=== PATIENT | female | born 1985 | race Two or more races ===

== ENCOUNTER → 2024-04-19 | Outpatient (CLI) | payer BC | END | disposition home or self-care (01) | LOC: LAB 14:21 | PROVIDERS: ATTEND Obstetrics & Gynecology | DX: Z34.00 Encounter for supervision of normal first pregnancy, unspecified trimester (principal) | CPT/HCPCS: 36415; 84144; 84702 ==

== ENCOUNTER → 2024-05-11 | Outpatient (CLI) | payer BC ==
[2024-05-11 12:23] LABS: Basophils # (auto) 0.1 10 ^3/uL (0-0.2); Basophils % (auto) 0.6 % (0.0-2.0); Eosinophils # (auto) 0.1 10 ^3/uL (0-0.8); Eosinophils % (auto) 0.9 % (0.0-7.0); Hematocrit 39.6 % (36.0-46.0); Hemoglobin 13.4 g/dL (12.2-16.2); Lymphocytes # (auto) 2.1 10 ^3/uL (0.4-5.4); Lymphocytes % (auto) 15.9 % (10.0-50.0); Mean Corpuscular Hemoglobin 27.6 pg (28.0-32.0); Mean Corpuscular Hgb Conc. 33.7 g/dL (32.0-36.0); Monocytes # (auto) 0.7 10 ^3/uL (0-1.3); Monocytes % (auto) 5.8 % (0.0-12.0); Neutrophils % (auto) 76.8 % (37.0-80.0); Nucleated Red Blood Cells % 0.1 %; Platelet Count (auto) 283 10^3/uL (140-450); Red Blood Cells 4.84 10^6/uL (4.0-5.20); Red Cell Distribution Width 14.6 % (11.8-14.3)
[2024-05-11 13:00] LABS: Amphetamine Screen, Urine Neg (NEGATIVE); Barbiturate Scree,Urine Neg (NEGATIVE); Benzodiazephine Screen, Urine Neg (NEGATIVE); Cocaine Screen, Urine Neg (NEGATIVE); Opiate Scree,Urine Neg (NEGATIVE); Phencyclidine Screen, Urine Neg (NEGATIVE)
[2024-05-11 13:01] LABS: Cannabinoid Screen, Urine Neg (NEGATIVE)
[2024-05-12 06:06] LABS: RPR Non Reactive (Non Reactive)
[2024-05-12 18:06] LABS: Chlamydia Trachomatis, NAA Negative (Negative); Neisseria gonorrhoeae, NAA Negative (Negative)
== END | disposition home or self-care (01) ==
LOC: LAB 11:42
PROVIDERS: ATTEND Obstetrics & Gynecology
DX: O23.40 Unspecified infection of urinary tract in pregnancy, unspecified trimester (principal); Z31.430 Encounter of female for testing for genetic disease carrier status for procreative management; N39.0 Urinary tract infection, site not specified; Z20.09 Contact with and (suspected) exposure to other intestinal infectious diseases
CPT/HCPCS: 36415; 80307; 83036; 84144; 84702; 85025; 86592; 86703; 86762; 86850; 86900; 86901; 87086; 87340

== ENCOUNTER 2024-06-04 16:29 | Emergency (ER) | payer BC ==
[~2024-06-04] VITALS: Ht 162.6 cm; Wt 100.0 kg
[2024-06-04] MEDS: ACETAMINOPHEN 500 MG TAB or CAP PO ONE (17:00)
--- NOTE | 2024-06-04 17:30 | DVH ---
EXAM: US OB ULTRASOUND COMP LESS 14WKS CLINICAL HISTORY: cramping, brown vag d/c COMPARISON: None TECHNIQUE: Grayscale, color-flow Doppler, and spectral Doppler ultrasound of the pelvis is performed by transabdominal technique. Findings: Single live intrauterine with gestational sac, yolk sac and embryo visualized. heart rate of 178 bpm. Estimated gestational age 12 weeks 0 days based on parameters including crown- rump length of 6.0 cm. Uterus measures 15.2 x 10.4 x 10.5 cm in size. Cervical os appears closed. No evidence of subchorionic hemorrhage. Bilateral ovaries not visualized. Mild free fluid within the cul-de-sac. Impression: 1. Single live intrauterine with heart rate of 178 bpm. Estimated gestational age 12 weeks 0 days with estimated date of confinement 12/17/2024. 2. No evidence of subchorionic hemorrhage. Cervical os appears closed. 3. Bilateral ovaries not visualized. 4. Mild free fluid in the cul-de-sac, nonspecific.
[2024-06-04] MEDS: SODIUM CHLORIDE 0.9% 1,000 ML IV ONE (17:33)
--- NOTE | 2024-06-04 17:57 | ED.PDOC ---
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 Pt states the abd pain is located on LLQ and is described as contractions, stating her abdominal wall becomes tight and firm on the left side. Additional symptoms include nausea and vomiting. Pt is currently 12 weeks . 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 Chief Complaint: Time Seen by MD: 17:45 Reviewed Notes: Nurses Notes, Medications, Allergies Allergies: Coded Allergies: Ibuprofen (Verified Allergy, Unknown, 06/04/24) Information Source: Patient Mode of Arrival: Ambulatory Timing: Hours Prehospital treatment: None Severity: Mild Vaginal Discharge: Other (light spotting) Vaginal Lesions: None Vaginal Mass: None Sexual Activity: Last Consensual [place]: Unknown Control: None History of: Current Associated Signs and Symptoms: Vaginal Discharge, Abdominal Pain (contractions) Past Medical History PAST MEDICAL HISTORY: DM (gestational) Surgical History: Denies all surgeries 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: Other (Gestational diabetes with prior ) 4 Para 3 Family History Family History: Unknown Social History Smoker: Non-Smoker Alcohol: Denies ETOH Use Drugs: Denies Drug Use Lives In: Home Constitutional: denies: chills, diaphoresis, fatigue, fever, malaise, sweats, weakness, others EENTM: denies: blurred vision, double vision, ear bleeding, ear discharge, ear drainage, ear pain, ear ringing, eye pain, eye redness, hearing loss, mouth pa in, mouth swelling, nasal discharge, nose bleeding, nose congestion, nose pain, photophobia, tearing, throat pain, throat swelling, voice changes, others Respiratory: denies: cough, hemoptysis, orthopnea, SOB at rest, shortness of breath, SOB with excertion, stridor, wheezing, others Cardiovascular: denies: chest pain, dizzy spells, diaphoresis, Dyspnea on exertion, edema, irregular heart beat, left arm pain, lightheadedness, palpitations, PND, syncope, others Gastrointestinal: denies: abdomen distended, abdominal pain, blood streaked bowels, constipated, diarrhea, dysphagia, difficulty swallowing, hematemesis, melena, nausea, poor appetite, poor fluid intake, rectal bleeding, rectal pain, vomiting, others Genitourinary: reports: pain (contractions), , others (light spotting); denies: abnormal vagina bleeding, burning, dyspareunia, dysuria, flank pain, frequency, hematuria, incontinence, vagina discharge, urgency Neurological: denies: dizziness, fainting, headache, left sided numbness, left sided weakness, numbness, paresthesia, pre-existing deficit, right sided numbness, right sided weakness, seizure, speech problems, tingling, tremors, weakness, others Musculoskeletal: denies: back pain, gout, joint pain, joint swelling, muscle pain, muscle stiffness, neck pain, others Integumetry: denies: bruises, change in color, change in hair/nails, dryness, laceration, lesions, lumps, rash, wounds, others Allergic/Immunocompromised: denies: Difficulty Healing, Frequent Infections, Hives, Itching, others Hematologic/Lymphatic: denies: anemia, blood clots, easy bleeding, easy bruising, swollen glands, others Endocrine: denies: excessive hunger, excessive sweating, excessive thirst, excessive urination, flushing, intolerance to cold, intolerance to heat, unexplained weight gain, unexplained weight loss, others Psychiatric: denies: anxiety, bipolar disorder, depression, hopeless, panic disorder, schizophrenia, sleepless, suicidal, others All Other Systems: Reviewed and Negative Physical Exam General Appearance: No Apparent Distress HEENT: Other (Pupils symmetric, moist mucous membranes) Neck: Full Range of Motion, Normal Inspection Respiratory: Lungs Clear, No Accessory Muscle Use, No Respiratory Distress, Normal Breath Sounds Cardiovascular: No Edema, No JVD, Regular Rate/Rhythm Breast Exam: Deferred Gastrointestinal: Non Tender, Soft Genitalia: Deferred Pelvic: Deferred Rectal: Deferred Extremities: Normal inspection, Normal range of motion, Non-tender, No pedal edema Neurologic: Alert (Oriented x4), Normal Affect, Normal Mood, Other (Ambulatory. No gross focal deficit.) Cerebellar Function: NOT DONE Reflexes: NOT DONE Skin: Dry, Normal Color, Warm Lymphatic: NOT DONE Was a procedure done? Was a procedure done?: No Differential Diagnosis (RESIDENTIAL INSTRUCTOR) Vaginal Bleeding: - Threatened, Abruptio Placentae, Placenta Previa, UTI, Other (Rowdy Lopez contractions, labor, electrolyte imbalance, dehydration, renal insufficiency/failure,) X-Ray, Labs, Meds, VS Vital Signs Date Time Temp Pulse Resp B/P (MAP) Pulse Ox O2 Delivery O2 Flow Rate FiO2 06/04/24 19:29 87 19 99 Room Air* 0 21 06/04/24 19:29 98.3 87 19 121/63 (82) 99 98.3 06/04/24 18:30 98.0 80 12 113/57 (75) 100 98.0 06/04/24 18:30 68 18 99 Room Air* 0 21 06/04/24 16:36 97.6 68 18 116/59 (78) 99 Lab Test 06/04/24 18:44 06/04/24 17:00 Range/Units White Blood Count 12.0 H 4.4-10.8 10^3/uL Red Blood Count 4.82 4.0-5.20 10^6/uL Hemoglobin 13.3 12.2-16.2 g/dL Hematocrit 39.8 36.0-46.0 % Mean Corpuscular Volume 82.5 80.0-100.0 fL Mean Corpuscular Hemoglobin 27.6 L 28.0-32.0 pg Mean Corpuscular Hemoglobin Concent 33.4 32.0-36.0 g/dL Red Cell Distribution Width 15.1 H 11.8-14.3 % Platelet Count 283 140-450 10^3/uL Mean Platelet Volume 8.6 6.9-10.8 fL Neutrophils (%) (Auto) 73.6 37.0-80.0 % Lymphocytes (%) (Auto) 19.2 10.0-50.0 % Monocytes (%) (Auto) 5.4 0.0-12.0 % Eosinophils (%) (Auto) 1.1 0.0-7.0 % Basophils (%) (Auto) 0.7 0.0-2.0 % Neutrophils # (Auto) 8.8 H 1.6-8.6 10 ^3/uL Lymphocytes # (Auto) 2.3 0.4-5.4 10 ^3/uL Monocytes # (Auto) 0.6 0-1.3 10 ^3/uL Eosinophils # (Auto) 0.1 0-0.8 10 ^3/uL Basophils # (Auto) 0.1 0-0.2 10 ^3/uL Nucleated Red Blood Cells 0.0 % Sodium Level 137 136-145 mmol/L Potassium Level 3.7 3.5-5.1 mmol/L Chloride Level 104 98-107 mmol/L Carbon Dioxide Level 22 20-31 mmol/L Anion Gap 11 5-15 Blood Urea Nitrogen 6 L 9-23 mg/dL Creatinine 0.60 0.550-1.02 mg/dL Glomerular Filtration Rate Calc 118 >90 mL/min BUN/Creatinine Ratio 10.0 10.0-20.0 Serum Glucose 87 74-106 mg/dL Calcium Level 9.6 8.7-10.4 mg/dL Beta HCG, Quantitative 85042.4 H 1.5-4.2 mIU/mL Urine Color Colorless Yellow Urine Clarity Turbid H Clear Urine pH 6.0 5.0-9.0 Urine Specific [place] 1.004 1.001-1.035 Urine Protein Negative Negative Urine Ketones Negative Negative Urine Blood 2+ H Negative /uL Urine Nitrite Negative Negative Urine Bilirubin Negative Negative Urine Urobilinogen Normal Negative mg/dL Urine Leukocyte Esterase 3+ Negative /uL Urine RBC 7 0 - 4 /hpf Urine WBC Clumps Present None Seen /hpf Urine Microscopic WBC 233 H 0-5 /HPF Urine Squamous Epithelial Cells Few <5 /hpf Urine Bacteria Few H None Seen /hpf Urine Glucose Normal Normal mg/dL Current Medications Medications (Trade) Dose Ordered Sig/Genesis Route Start Time Stop Time Status Last Admin Sodium Chloride 1,000 ml @ 1,000 mls/hr Q1H ONCE IV 06/04/24 17:00 06/04/24 17:59 DC 06/04/24 17:33 ORDERING PHYSICIAN: ANDREIA MASTERS MD PROCEDURE(s): OB4US - OB ULTRASOUND COMP LESS 14WKS REASON: cramping, brown vag d/c ORDER NUMBER(s): [id number], ACCESSION NUMBER(s): [id number] EXAM: US OB ULTRASOUND COMP LESS 14WKS CLINICAL HISTORY: cramping, brown vag d/c COMPARISON: None TECHNIQUE: Grayscale, color-flow Doppler, and spectral Doppler ultrasound of the pelvis is performed by transabdominal technique. Findings: Single live intrauterine with gestational sac, yolk sac and embryo visualized. heart rate of 178 bpm. Estimated gestational age 12 weeks 0 days based on parameters including crown-rump length of 6.0 cm. Uterus measures 15.2 x 10.4 x 10.5 cm in size. Cervical os appears closed. No evidence of subchorionic hemorrhage. Bilateral ovaries not visualized. Mild free fluid within the cul-de-sac. Impression: 1. Single live intrauterine with heart rate of 178 bpm. Estimated gestational age 12 weeks 0 days with estimated date of confinement 12/17/2024. 2. No evidence of subchorionic hemorrhage. Cervical os appears closed. 3. Bilateral ovaries not visualized. 4. Mild free fluid in the cul-de-sac, nonspecific. X-Ray, Labs, Meds, VS Comment 38-year-old female with a history of current , gestational diabetes with previous , G4, P 3 complaining of contractions, nausea and vomiting Vitals remarkable for BP 116/59 Exam unremarkable Rhythm strip independently interpreted by me: Sinus rhythm, rate 68, no ectopy. Ob ultrasound: Impression: 1. Single live intrauterine with heart rate of 178 bpm. Estimated gestational age 12 weeks 0 days with estimated date of confinement 12/17/2024. 2. No evidence of subchorionic hemorrhage. Cervical os appears closed. 3. Bilateral ovaries not visualized. 4. Mild free fluid in the cul-de-sac, nonspecific. CBC remarkable for WBC 12, metabolic panel unremarkable, serum quantitative hCG 96849.4, UA abnormal consistent with UTI Patient treated with the following in the ED: 1 L 0.9 normal saline IV bolus, Rocephin 1 g IV On re-evaluation, patient denies contractions, abdominal exam benign, no nausea or vomiting. Hospitalization was considered, however patient had rapid improvement of symptoms with treatment in the ED, and I no longer feel hospitalization is necessary. 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 I will prescribe oral antibiotics. Rx tita Hsieh Reglan Time of 1ST Reevaluation: 18:15 Reevaluation 1ST: Unchanged Patient Education/Counseling: Diagnosis, Treatment Family Education/Counseling: No Family Present Departure 1 Departure Time of Disposition: 21:54 Impression: Primary Impression: Morales Lopez contractions Additional Impression: UTI (urinary tract infection) Qualified Codes: N39.0 - Urinary tract infection, site not specified Disposition: HOME / SELF CARE / HOMELESS Condition: Stable Additional Instructions: Your blood tests were unremarkable. Your urine test showed you have a urinary tract infection. Your ultrasound is unremarkable. I have provided the report below. I have prescribed antibiotics and medication for nausea. Follow-up with your OBGYN in 1-2 days. Return to ER for persistent or worsening symptoms. e-Prescriptions Metoclopramide Hcl (Reglan) 10 Mg Tab 10 MG PO Q6HP PRN, #20 TAB prn nausea/vomiting Prov: ANDREIA MASTERS MD 06/04/24 Doxylamine-Pyridoxine (DICLEGIS) 1 Tab Tab 2 TAB OR HS PRN, #60 TAB prn nausea/vomiting Prov: ANDREIA MASTERS MD 06/04/24 Cephalexin Monohydrate (Cephalexin) 500 Mg Cap 1 CAP PO QID for 10 Days, #40 CAP Prov: ANDREIA MASTERS MD 06/04/24 Discharged With: Spouse Critical Care Note Critical Care Time?: No Stability Stability form required: No Heart Score Heart Score: Heart Score Response (Comments) Value History N/A 0 EKG N/A 0 Age N/A 0 Risk Factors N/A 0 Troponin N/A 0 Total 0 I personally scribed for ANDREIA MASTERS MD ([email or web address]) on 06/04/24 at 17:57. Electronically submitted by Lynn Hatch ([employer]). I personally scribed for ANDREIA MASTERS MD ([email or web address]) on 06/04/24 at 19:20. Electronically submitted by Lynn Hatch ([employer]). ANDREIA MASTERS MD Jun 04, 2024 17:57
[2024-06-04 18:30] VITALS: PULSE 68; RESP 18; O2SAT 99
[2024-06-04 19:00] LABS: Urine Bacteria FEW /hpf (None Seen); Urine Blood 2+ /uL (Negative); Urine Clarity Turbid (Clear); Urine Color Colorless (Yellow); Urine Protein, UAD Negative (Negative); Urine Specific Gravity 1.004 (1.001-1.035); Urine Squamous Epithelial Cell FEW /hpf (<5); Urine Urobilinogen Normal (Negative); Urine WBC 233 /HPF (0-5); Urine WBC Clumps PRESENT /hpf (None Seen)
[2024-06-04 19:14] LABS: Basophils # (auto) 0.1 10 ^3/uL (0-0.2); Basophils % (auto) 0.7 % (0.0-2.0); Eosinophils # (auto) 0.1 10 ^3/uL (0-0.8); Eosinophils % (auto) 1.1 % (0.0-7.0); Hematocrit 39.8 % (36.0-46.0); Hemoglobin 13.3 g/dL (12.2-16.2); Lymphocytes # (auto) 2.3 10 ^3/uL (0.4-5.4); Lymphocytes % (auto) 19.2 % (10.0-50.0); Mean Corpuscular Hemoglobin 27.6 pg (28.0-32.0); Mean Corpuscular Hgb Conc. 33.4 g/dL (32.0-36.0); Mean Corpuscular Volume 82.5 fL (80.0-100.0); Monocytes # (auto) 0.6 10 ^3/uL (0-1.3); Monocytes % (auto) 5.4 % (0.0-12.0); Neutrophils # (auto) 8.8 10 ^3/uL (1.6-8.6); Neutrophils % (auto) 73.6 % (37.0-80.0); Platelet Count (auto) 283 10^3/uL (140-450); Red Blood Cells 4.82 10^6/uL (4.0-5.20); Red Cell Distribution Width 15.1 % (11.8-14.3)
[2024-06-04 19:22] LABS: Chloride 104 mmol/L (98-107); Potassium 3.7 mmol/L (3.5-5.1); Sodium 137 mmol/L (136-145)
[2024-06-04 19:23] LABS: Anion Gap 11 (5-15); Calcium 9.6 mg/dL (8.7-10.4); Carbon Dioxide 22 mmol/L (20-31)
[2024-06-04 19:28] LABS: Blood Urea Nitrogen 6 mg/dL (9-23); Glucose 87 mg/dL (74-106)
[2024-06-04 19:29] VITALS: PULSE 87; RESP 19; TEMP 98.3; O2SAT 99
[2024-06-04] MEDS ORDERED: CEPH500C PO (21:57)
[2024-06-04] MEDS ORDERED: DOXY10TA OR (21:57)
[2024-06-04] MEDS ORDERED: METO-281 PO (21:57)
[2024-06-04 22:00] VITALS: BP 118/75; PULSE 88; RESP 20; O2SAT 97
[2024-06-04] MEDS ORDERED: cefTRIAXone 1GM/50ML D5W 50 ML IV ONE (22:00)
== END 2024-06-04 22:11 | disposition home or self-care (01) ==
LOC: ER 16:29
DX: O23.41 Unspecified infection of urinary tract in pregnancy, first trimester (principal); R10.2 Pelvic and perineal pain; O47.1 False labor at or after 37 completed weeks of gestation; O24.111 Pre-existing type 2 diabetes mellitus, in pregnancy, first trimester; O36.8310 Maternal care for abnormalities of the fetal heart rate or rhythm, first trimester, not applicable or unspecified; N39.0 Urinary tract infection, site not specified; Z3A.12 12 weeks gestation of pregnancy; Z88.6 Allergy status to analgesic agent
CPT/HCPCS: 36415; 76801; 80048; 81001; 84702; 85025; 96360; 99284; J7030

== ENCOUNTER 2024-10-21 06:30 | Observation (INO) | payer BC ==
[~2024-10-21] VITALS: Ht 162.6 cm; Wt 107.5 kg
[~2024-10-21 06:30] MED LIST: CEPH500C PO; DOXY10TA OR; METO-281 PO
--- NOTE | 2024-10-21 15:51 | DVH ---
BIOPHYSICAL PROFILE HISTORY: GDMA2 TECHNIQUE: Multiple transabdominal real-time grayscale sonographic images through the gravid uterus of the fetus with duplex Doppler color flow and M-mode spectral analysis FINDINGS: BIOPHYSICAL PROFILE: breathing score: 2 movement score: 2 tone score: 2 Quantitative USHA score: 2 (USHA: 19.5 Cm.) Total score: 8/8 The cervix not measured Single live fetus in cephalic presentation. heart rate 144 beats per minute. Fundal Grade 2 placenta without previa or abruption Single live fetus at 32 weeks 1 day Biophysical profile score 8/8 corresponding to an DRE of 12/15/2024 IMPRESSION: 1. Biophysical profile score: 8/8
[2024-10-21] MEDS ORDERED: METF-370 PO (16:10)
[2024-10-21] MEDS ORDERED: LACTATED RINGER'S 1,000 ML IV SCH (16:15)
[2024-10-21] MEDS ORDERED: TERBUTALINE SULFATE 1 MG/ML 1ML VIAL SC ONE (16:17)
[2024-10-21] MEDS: TERBUTALINE SULFATE 1 MG/ML 1ML VIAL SC SCH (16:38)
[2024-10-21] MEDS: LACTATED RINGER'S 1,000 ML IV ONE (16:39)
--- NOTE | 2024-10-22 08:01 | DVHDS2 ---
Physician Discharge Progress N Final Diagnosis: IUP @ 32.1wks gdm Operations or Procedures: Operations or Procedures nst reactive reviwed,sono Condition on Discharge: Good Disposition: Home Discharge Instructions: Diet: Consistent carbohydrate Activity: Light activity Medications: na Follow Up Care: Specialist: 3d Discharge Statement: "Patient was advised to return to the ER or call 911 if any headaches, dizziness, shortness of breath, chest pain, abdominal pain, bleeding, fevers, or worsening of medical condition. Patient was counseled about treatment plan, medications, possible side effects, patientverbalized understanding. All questions were answered to the best of my ability. This discharge took greater then 30 minutes in planning, reviewing d ocumentation, counseling the patient, and discussing with other team members." Visit Coding OBGYN Date of Service: Oct 21, 2024 Billing Provider: NEVAEH MARTINI DO CHOPPER GUN OPERATOR Common Visit Codes: 49020-RSAEGUM OBS CARE (HIGH) CHOPPER GUN OPERATOR Procedure Codes: 48337-86- NON-STRESS TEST NEVAEH MARTINI DO Oct 22, 2024 08:01
== END 2024-10-21 17:51 | disposition home or self-care (01) ==
LOC: LDRP 15:02
PROVIDERS: ADMIT Obstetrics & Gynecology; ATTEND Obstetrics & Gynecology
DX: O24.419 Gestational diabetes mellitus in pregnancy, unspecified control (principal); Z3A.32 32 weeks gestation of pregnancy; Z79.899 Other long term (current) drug therapy; Z98.890 Other specified postprocedural states
CPT/HCPCS: 76818; 81002; 82962; 94760; 96360; 96361; 96372; G0378; J3105; 59025; 76819

== ENCOUNTER 2024-10-25 07:39 | Observation (INO) | payer BC ==
[~2024-10-25 07:39] MED LIST changes: +METF-370 PO
--- NOTE | 2024-10-25 14:30 | DVH ---
BIOPHYSICAL PROFILE HISTORY: GDMA2 TECHNIQUE: Multiple transabdominal real-time grayscale sonographic images through the gravid uterus of the fetus with duplex Doppler color flow and M-mode spectral analysis FINDINGS: BIOPHYSICAL PROFILE: breathing score: 2] movement score: 2 tone score: 2 Quantitative USHA score: 2 (USHA: 15.4 Cm.) Total score: 8 The cervix not well visualized. Single live fetus in cephalic presentation. heart rate 148 beats per minute. Fundal placenta without previa or abruption IMPRESSION: Biophysical profile score: 8
--- NOTE | 2024-10-25 16:05 | DVHDS2 ---
Physician Discharge Progress N Final Diagnosis: testing for GDM, A2 Operations or Procedures: Operations or Procedures 39yo IUP@32.5wks VSS NST reactive FKC/PTL precautions reviewed Dr. Bateman consulted, agrees with POC. Other Interventions Other Interventions [address] [address] Ph: [phone] DIAGNOSTIC IMAGING Diagnostic Imaging Report : [id number] Signed PATIENT: ADRIANA FAGANCCT: [id number] UNIT: [id number] : 1985 LOC: LD ROOM / BED: TRIAGE1 / A AGE / SEX: 39 / F ADM STATUS: ADM IN SERVICE 1342 ORDERING PHYSICIAN: TARAS DIOP CNM PROCEDURE(s): BPP - BIOPHYSICAL PROFILE REASON: GDMA2 ORDER NUMBER(s): [id number], ACCESSION NUMBER(s): [id number] BIOPHYSICAL PROFILE HISTORY: GDMA2 TECHNIQUE: Multiple transabdominal real-time grayscale sonographic images th rough the gravid uterus of the fetus with duplex Doppler color flow and M-mode spectral analysis FINDINGS: BIOPHYSICAL PROFILE: breathing score: 2] movement score: 2 tone score: 2 Quantitative USHA score: 2 (USHA: 15.4 Cm.) Total score: 8 The cervix not well visualized. Single live fetus in cephalic presentation. heart rate 148 beats per minute. Fundal placenta without previa or abruption IMPRESSION: Biophysical profile score: 8 ATED BY: CELIA GRACIA MD DICTATED DATE/TIME: 10/25/241427 SIGNED BY: CELIA GRACIA MD SIGNED DATE/TIME: 10/25/241427 CC: Condition on Discharge: Stable Disposition: Home Discharge Instructions: Diet: Regular Activity: No Restrictions, As Tolerated Follow Up/Referral: Keep all scheduled appointments Medications: continue all prescription medications exactly as prescribed Follow Up Care: Specialist: f/u in 3 days Discharge Statement: "Patient was advised to return to the ER or call 911 if any headaches, dizziness, shortness of breath, chest pain, abdominal pain, bleeding, fevers, or worsening of medical condition. Patient was counseled about treatment plan, medications, possible side effects, patientverbalized understanding. All questions were answered to the best of my ability. This discharge took greater then 30 minutes in planning, reviewing documentation, counseling the patient, and discussing with other team members." Visit Coding OBGYN Date of Service: Oct 25, 2024 Billing Provider: TARAS DIOP CNM WINDOW SHADE CUTTER AND MOUNTER Common Visit Codes: 63021-FIPYAQF OBS CARE (HIGH) WINDOW SHADE CUTTER AND MOUNTER Procedure Codes: 74281-01- NON-STRESS TEST TARAS DIOP CNM Oct 25, 2024 16:05
== END 2024-10-25 15:08 | disposition home or self-care (01) ==
LOC: LDRP 12:34
PROVIDERS: ADMIT Obstetrics & Gynecology; ATTEND Obstetrics & Gynecology
DX: O24.419 Gestational diabetes mellitus in pregnancy, unspecified control (principal); O09.523 Supervision of elderly multigravida, third trimester; Z3A.32 32 weeks gestation of pregnancy; Z79.899 Other long term (current) drug therapy
CPT/HCPCS: 76818; 81002; 82948; 82962; G0378; 59025; 76819

== ENCOUNTER 2024-10-28 11:58 | Observation (INO) | payer BC ==
--- NOTE | 2024-10-28 13:00 | DVH ---
BIOPHYSICAL PROFILE HISTORY: GDMA2 Comparison Study: US BIOPHYSICAL PROFILE on DOS: 10/25/24, US BIOPHYSICAL PROFILE on DOS: 10/21/24 TECHNIQUE: Multiple real-time grayscale sonographic images through the gravid uterus of the fetus wi th duplex Doppler color flow and M-mode spectral analysis FINDINGS: BIOPHYSICAL PROFILE: breathing score: 2 movement score: 2 tone score: 2 Quantitative USHA score: 2 (USHA: 14.6 Cm.) Total score: 8 The cervix is not visualized Single live fetus in cephalic presentation. heart rate 149 beats per minute. Fundal placenta without previa or abruption IMPRESSION: Biophysical profile score: 8
--- NOTE | 2024-10-28 15:17 | DVHDS2 ---
Physician Discharge Progress N Final Diagnosis: gdma2 33wks Operations or Procedures: Operations or Procedures nst reactive reviwed,sono Condition on Discharge: Good Disposition: Home Discharge Instructions: Diet: Consistent carbohydrate Activity: No Restrictions, As Tolerated Follow Up/Referral: [facility] at 4:00 pm for NST/BPP Medications: na Follow Up Care: Specialist: 3d Discharge Statement: "Patient was advised to return to the ER or call 911 if any headaches, dizziness, shortness of breath, chest pain, abdominal pain, bleeding, fevers, or worsening of medical condition. Patient was counseled about treatment plan, medications, possible side effects, patientverbalized understanding. All questions were answered to the best of my ability. This discharge took greater then 30 minutes in planning, reviewing documentatio n, counseling the patient, and discussing with other team members." Visit Coding OBGYN Date of Service: Oct 28, 2024 Billing Provider: NEVAEH MARTINI DO ELECTROTYPER APPRENTICE Common Visit Codes: 36358-PNLCQJK OBS CARE (HIGH) ELECTROTYPER APPRENTICE Procedure Codes: 40523-87- NON-STRESS TEST NEVAEH MARTINI DO Oct 28, 2024 15:17
== END 2024-10-28 14:00 | disposition home or self-care (01) ==
LOC: LDRP 11:58
PROVIDERS: ADMIT Obstetrics & Gynecology; ATTEND Obstetrics & Gynecology
DX: O24.419 Gestational diabetes mellitus in pregnancy, unspecified control (principal); Z3A.33 33 weeks gestation of pregnancy; Z79.899 Other long term (current) drug therapy; Z98.890 Other specified postprocedural states
CPT/HCPCS: 76818; 81002; 82962; G0378; 59025; 76819

== ENCOUNTER 2024-11-01 01:00 | Observation (INO) | payer BC ==
[~2024-11-01] VITALS: Ht 165.1 cm; Wt 93.0 kg
--- NOTE | 2024-11-01 16:52 | DVH ---
BIOPHYSICAL PROFILE HISTORY: GMDA2 TECHNIQUE: Multiple real-time grayscale sonographic images through the gravid uterus of the fetus wi th duplex Doppler color flow. FINDINGS: BIOPHYSICAL PROFILE: breathing score: 2 movement score: 2 tone score: 2 Quantitative USHA score: 2 Total score: 8 out of 8 Single live intrauterine . heart rate of 144 beats per minute. Cephalic lie. Placent a posteriorly positioned. USHA 12.3 cm IMPRESSION: Biophysical profile score: 8 out of 8
--- NOTE | 2024-11-01 18:30 | DVHDS2 ---
Physician Discharge Progress N Final Diagnosis: testing for GDM, A2 Operations or Procedures: Operations or Procedures 39yo IUP@33.5wks, UTI treated recently, denies UTI s/sx today. VSS NST reactive FKC/PTL precautions reviewed Recommended taking daily OTC probiotic supplement. Dr. Bateman consulted, agrees with POC. Other Interventions Other Interventions [place] [address] Ph: [phone] DIAGNOSTIC IMAGING Diagnostic Imaging Report : [id number] Signed PATIENT: ADRIANA FAGANCCT: [id number] UNIT: [id number] : 1985 LOC: LD ROOM / BED: [facility] / A AGE / SEX: 39 / F ADM STATUS: ADM IN SERVICE 01 ORDERING PHYSICIAN: TARAS DIOP CNM PROCEDURE(s): BPP - BIOPHYSICAL PROFILE REASON: GMDA2 ORDER NUMBER(s): [id number], ACCESSION NUMBER(s): [id number] BIOPHYSICAL PROFILE HISTORY: GMDA2 TECHNIQUE: Multiple real-time grayscale sonographic images through the gravid uterus of the fetus with duplex Doppler color flow. FINDINGS: BIOPHYSICAL PROFILE: breathing score: 2 movement score: 2 tone score: 2 Quantitative USHA score: 2 Total score: 8 out of 8 Single live intrauterine . heart rate of 144 beats per minute. Cephalic lie. Placenta posteriorly positioned. USHA 12.3 cm IMPRESSION: Biophysical profile score: 8 out of 8 ATED BY: ADE MARIN MD DICTATED DATE/TIME: 11/01/241650 SIGNED BY: ADE MARIN MD SIGNED DATE/TIME: 11/01/241650 CC: Condition on Discharge: Stable Disposition: Home Discharge Instructions: Diet: Consistent carbohydrate Activity: No Restrictions, As Tolerated Medications: see med list Follow Up Care: Specialist: f/u twice weekly Discharge Statement: "Patient was advised to return to the ER or call 911 if any headaches, dizziness, shortness of breath, chest pain, abdominal pain, bleeding, fevers, or worsening of medical condition. Patient was counseled about treatment plan, medications, possible side effects, patientverbalized understanding. All questions were answered to the best of my ability. This discharge took greater then 30 minutes in planning, reviewing documentation, counseling the patient, and discussing with other team members." Visit Coding OBGYN Date of Service: Nov 01, 2024 Billing Provider: TARAS DIOP CNM TERADATA ARCHITECT Common Visit Codes: 43024-[id number] OBS CARE (HIGH) TERADATA ARCHITECT Procedure Codes: 16384-42- NON-STRESS TEST TARAS DIOP CNM Nov 01, 2024 18:30
== END 2024-11-01 17:10 | disposition home or self-care (01) ==
LOC: LDRP 15:55 → UNDOADMOB 15:55 → LDRP 16:03 → UNDODISOB 17:10
PROVIDERS: ADMIT Obstetrics & Gynecology; ATTEND Obstetrics & Gynecology
DX: O24.419 Gestational diabetes mellitus in pregnancy, unspecified control (principal); Z98.890 Other specified postprocedural states; Z79.899 Other long term (current) drug therapy; Z3A.33 33 weeks gestation of pregnancy
CPT/HCPCS: 76818; 81002; 82948; 82962; 94760; G0378; 59025; 76819

== ENCOUNTER 2024-11-04 06:52 | Observation (INO) | payer BC ==
[2024-11-04] MEDS ORDERED: PREN-96 PO (16:10)
--- NOTE | 2024-11-04 16:53 | DVH ---
BIOPHYSICAL PROFILE HISTORY: GDMA2 TECHNIQUE: Multiple real-time grayscale sonographic images through the gravid uterus of the fetus wi th duplex Doppler color flow. FINDINGS: BIOPHYSICAL PROFILE: breathing score: 2 movement score: 2 tone score: 2 Quantitative USHA score: 2 Total score: 8 out of 8 Single live intrauterine . Cephalic lie. Placenta posteriorly/fundally positioned. he art rate of 157 beats per minute. USHA 12.9 cm. IMPRESSION: Biophysical profile score: 8 out of 8
--- NOTE | 2024-11-14 16:14 | DVHDS2 ---
Physician Discharge Progress N Final Diagnosis: labor,gdm Operations or Procedures: Operations or Procedures nst reactive reviwed,sono Condition on Discharge: Good Disposition: Home Discharge Instructions: Diet: Consistent carbohydrate Activity: No Restrictions, As Tolerated Medications: na Follow Up Care: Specialist: 3d Discharge Statement: "Patient was advised to return to the ER or call 911 if any headaches, dizziness, shortness of breath, chest pain, abdominal pain, bleeding, fevers, or worsening of medical condition. Patient was counseled about treatment plan, medications, possible side effects, patientverbalized understanding. All questions were answered to the best of my ability. This discharge took greater then 30 minutes in planning, reviewing documentation, counseling the patient, and discussing with other team members." Discharge Care Plan Instructions S/S of dehydration Visit Coding OBGYN Date of Service: Nov 04, 2024 Billing Provider: NEVAEH MARTINI DO BANDMILL OPERATOR Common Visit Codes: 77724-JDEOCTM INP/OBS CARE (HIGH) BANDMILL OPERATOR Procedure Codes: 77616-28- NON-STRESS TEST NEVAEH MARTINI DO Nov 14, 2024 16:14
== END 2024-11-04 17:03 | disposition home or self-care (01) ==
LOC: LDRP 15:56
PROVIDERS: ADMIT Obstetrics & Gynecology; ATTEND Obstetrics & Gynecology
DX: O24.419 Gestational diabetes mellitus in pregnancy, unspecified control (principal); Z98.890 Other specified postprocedural states; Z79.899 Other long term (current) drug therapy; Z3A.34 34 weeks gestation of pregnancy
CPT/HCPCS: 76818; 81002; 82948; 82962; 94760; G0378; 59025; 76819

== ENCOUNTER 2024-11-08 07:57 | Observation (INO) | payer BC ==
[~2024-11-08] VITALS: Ht 172.7 cm; Wt 78.0 kg
[~2024-11-08 07:57] MED LIST changes: +PREN-96 PO
[2024-11-08] MEDS ORDERED: ACETAMINOPHEN 500 MG TAB or CAP PO PRN (18:00)
[2024-11-08 18:36] LABS: Hematocrit 36.3 % (36.0-46.0); Hemoglobin 12.7 g/dL (12.2-16.2); Mean Corpuscular Hemoglobin 30.2 pg (28.0-32.0); Mean Corpuscular Volume 85.9 fL (80.0-100.0); Nucleated Red Blood Cells % 0.1 %
[2024-11-08] MEDS ORDERED: LACTATED RINGER'S 1,000 ML IV ONE (18:45)
[2024-11-08 18:52] LABS: Alanine Aminotransferase < 9 U/L (7-40); Albumin 3.8 g/dL (3.2-4.8); Alkaline Phosphatase 127 U/L (46-116); Anion Gap 11 (5-15); BUN/Creatinine Ratio 13.7 (10.0-20.0); Bilirubin, Total 0.4 mg/dL (0.2-1.0); Blood Urea Nitrogen 10 mg/dL (9-23); Calcium 9.3 mg/dL (8.7-10.4); Carbon Dioxide 21 mmol/L (20-31); Chloride 106 mmol/L (98-107); Glucose 100 mg/dL (74-106); Potassium 4.1 mmol/L (3.5-5.1); Sodium 138 mmol/L (136-145); Total Protein 6.5 g/dL (5.7-8.2); Uric Acid 5.2 mg/dL (3.1-7.8)
[2024-11-08 18:53] LABS: Urine Protein, UAD TRACE (Negative)
[2024-11-08] MEDS: TERBUTALINE SULFATE 1 MG/ML 1ML VIAL SC SCH (18:54)
[2024-11-08 18:57] LABS: INR 0.92 (0.9-1.15); Partial Thromboplastin Time 26.4 SEC (24.5-34.5); Prothrombin Time 9.8 sec (9.3-11.8)
[2024-11-08 19:01] LABS: Protein, Urine 30.5 mg/dL (1-14)
[2024-11-08] MEDS ORDERED: LABETALOL HCL 200 MG TAB ONE (19:04)
[2024-11-08] MEDS: LABETALOL HCL 200 MG TAB PO STA (19:07)
[2024-11-08] MEDS ORDERED: hydrALAZINE HCL 20 MG/ML VL IV PRN (20:00)
[2024-11-08] MEDS: MAGNESIUM SULFATE 100 ML IV ONE (20:00)
--- NOTE | 2024-11-08 20:17 | DVH ---
BIOPHYSICAL PROFILE HISTORY: GDMA2 Comparison Study: US BIOPHYSICAL PROFILE on DOS: 11/04/24, US BIOPHYSICAL PROFILE on DOS: 11/01/24, US B IOPHYSICAL PROFILE on DOS: 10/28/24, US BIOPHYSICAL PROFILE on DOS: 10/25/24, US BIOPHYSICAL PROFILE on DOS: 10/21/24 TECHNIQUE: Limited transabdominal sonographic assessment of maternal and structures with ernie julian, color and M-mode Doppler. FINDINGS: Single intrauterine gestation with cardiac activity at 160 beats per minute. Cephalic position with t he cervix obscured. Fundal placenta without evidence of previa. USHA measures 17.8 cm. No evidence of perigestational fluid. Biophysical profile: breathin/2 movements: 2/2 tone: 2/2 Amniotic Fluid index: 2/2 Total: 11/11 IMPRESSION: 1. Biophysical profile score: 8/8
[2024-11-08] MEDS: BETAMETHASONE ACET (30mg/5ml) 5ml Vial 6mg/ml IM ONE (20:18)
[2024-11-08] MEDS: NIFEdipine 10 MG CAP PO STA (20:26)
--- NOTE | 2024-11-08 20:30 | DVHHP2 ---
OB CC & HPI Date Date of Admission: Nov 08, 2024 Patient Identification: : 4 Para: 3 EDC: Dec 15, 2024 EGA: 34.5wks Chief Complaints: Reason for admission: other History of Present Complaints 39yo IUP@34.5wks presents to OB triage for scheduled NST/BPP for GDM, A2. Pt c/o mild headache and mild UCs. Denies LOF/VB/vision changes/RUQ pain. PNC with Dr. Bateman, complicated by GDM, A2 (takes 26units of lantus SQ and metformin 1000mg PO). OB hx: x3, denies preeclampsia hx Past Medical History Cardiac: No pertinent Hx Pulmonary: No pertinent Hx Central Nervous System: No pertinent Hx GI: No pertinent Hx Hemotology/Oncology: No pertinent Hx Hepatobiliary: No pertinent Hx Psychiatric: No pertinent Hx Musculoskeletal: No pertinent Hx Rheumotologic: No pertinent Hx Infectious Disease: No peritnent Hx ENT: No pertinent Hx Renal/: No pertinent Hx Endocrine: No pertinent Hx Dermatology: No pertinent Hx Past Surgical History: No pertinent Hx OB History OB History Care: Good Care Obstetrical Complications: Gestational Diabetes (A2), Pre-eclampsia (severe features) Medical Complications: None Allergies: Coded Allergies: Ibuprofen (Verified Allergy, Unknown, 06/04/24) Home Meds Active Scripts Metoclopramide Hcl (Reglan) 10 Mg Tab, 10 MG PO Q6HP PRN, #20 TAB prn nausea/vomiting Prov:ANDREIA MASTERS MD 06/04/24 Doxylamine-Pyridoxine (DICLEGIS) 1 Tab Tab, 2 TAB OR HS PRN, #60 TAB prn nausea/vomiting Prov:ANDREIA MASTERS MD 06/04/24 Cephalexin Monohydrate (Cephalexin) 500 Mg Cap, 1 CAP PO QID for 10 Days, #40 CAP Prov:ANDREIA MASTERS MD 06/04/24 Reported Medications Vit W/ Ferrous Fumara ( One Daily) Daily Tab, 1 TAB PO DAILY, #90 TAB 3 Refills 11/04/24 Metformin Hydrochloride (Metformin Hcl) 500 Mg Tab, 1000 MG PO DAILY for 30 Days, MG 10/21/24 Current Medications 2 doses of terbutaline sq given procardia 10mg PO x1 given labetalol 300mg PO given Magnesium 4g IV bolus and 2g/hr IV maintenance started First dose of betamethasone IM given Current Medications Medications (Trade) Dose Ordered Sig/Genesis Route PRN Reason Start Time Stop Time Status Last Admin Acetaminophen (Tylenol Tablet Or Capsule) 1,000 mg Q8HP PRN PO MILD PAIN (1-3 PAIN SCALE) 11/08/24 18:00 Terbutaline Sulfate (Brethine Inj) 0.25 mg Q20M SC 11/08/24 18:45 11/08/24 19:26 DC 11/08/24 19:19 Labetalol HCl (Normodyne Tablet) 300 mg STAT STAT PO 11/08/24 18:35 11/08/24 18:44 DC 11/08/24 19:07 Hydralazine HCl (Apresoline Injection) 5 mg Q20MP PRN IV SBP>160 or DBP>105 11/08/24 20:00 Magnesium Sulfate 1,000 ml @ 50 mls/hr Q20H IV 11/08/24 20:00 Family & Social History Family/Social History Past Family/Social History: denies Blood Type: Unknown Rubella: unknown RPR/VDRL: Unknown GBS Status: Unknown HBsAG: Unknown Review of Systems Constitutional: No symptom reported Ears, Nose, & Throat: No symptom reported Eyes: No symptom reported Pulmonary/Respiratory: No symptom reported Cardiovascular: Edema Gastrointestinal: No symptom reported Genitourinary: No symptom reported Musculoskeletal: No symptom reported Skin: No symptom reported Psychiatric: No symptom reported Endocrine: No symptom reported Hemotologic/Lymphatic: No symptom reported OB Admission Exam Physical Exam Vitals: elevated BPs Vital Signs Date Time Temp Pulse Resp B/P (MAP) Pulse Ox O2 Delivery O2 Flow Rate FiO2 11/08/24 19:07 81 146/78 OB sono today: CVL 3.95cm, BPP 8/8, USHA 17.8cm, vertex EFW at Dr. Glasgow's office on 10/13/24 was 4lbs 3oz. Has f/u appt on 11/10/24 with MFM. HEENT: TMs Normal, Fontanelles Normal, Nasal Mucosa Normal, Eyes non-injected, Oropharynx Normal, PERRLA, Moist Membranes, EOMI Heart: Rhythm Normal Lungs: Clear Abdomen: Gravid Extremities: Normal Reflexes: Normal Pelvic Exam: see RN note Membranes: Intact Heart Rate: 140's Accelerations: Accelerations Present Decelerations: No Decelerations Seam Steamer Variability: Average (6-25) Contractions on Admission: < 5 Minutes Apart Intensity: Mild OB Plan Plan Admitting Diagnosis: Preeclampsia with severe features GDM, A2 labor Plan: Other (Dr. Bateman is transferring pt to higher level of care via air lyft to [facility] [place] with accepting physician, Dr. Conklin.) Visit Coding OBGYN Date of Service: Nov 08, 2024 Billing Provider: NEVAEH BATEMAN DO SITE MEDICAL DIRECTOR Common Visit Codes: 23253-QKX/OBS SAME DATE (HIGH) TARAS DIOP CNM Nov 08, 2024 20:30
--- NOTE | 2024-11-08 20:37 | DVH ---
LIMITED SURVEY CLINICAL HISTORY: PTL - cervical length only COMPARISON: US OB ULTRASOUND COMP LESS 14WKS on DOS: 06/04/24 TECHNIQUE: Grayscale transvaginal imaging of the uterus is performed. Findings and impression: The cervix measures approximately 3.9 cm in length and appears closed.
[2024-11-08] MEDS: MAGNESIUM SULFATE 40MG/ML 1,000 ML IV SCH (21:52)
--- NOTE | 2024-11-09 12:37 | DVHTS ---
Transfer Summary Transfer Summary Date of Admission Nov 08, 2024 at 16:53 Date of Transfer: Nov 08, 2024 Transfer Diagnosis ptl,severe pih,morbid obesity,gdm Brief Hx & Hospital Course: pt is admitted for sever pih ,she has gdma2 and is morbidly obese .she is also having ptl.dr brito was contacted and pt was accepted to [facility] Transfer to: [facility] Discharge Instructions: via air Transfer Status stable Scheduled Cephalexin Monohydrate (Cephalexin), 1 CAP PO QID Metformin Hydrochloride (Metformin Hcl), 1,000 MG PO DAILY, (Reported) Vit W/ Ferrous Fumara ( One Daily), 1 TAB PO DAILY, (Reported) Scheduled PRN Doxylamine-Pyridoxine (Diclegis), 2 TAB OR HS PRN Metoclopramide Hcl (Reglan), 10 MG PO Q6HP PRN Visit Coding OBGYN Date of Service: Nov 08, 2024 Billing Provider: NEVAEH MARTINI DO X RAY CONSULTANT Common Visit Codes: 76457-JOAVSIZ OBS CARE (HIGH) X RAY CONSULTANT Consultation Codes: 42801-[id number] CONSULT <110MIN X RAY CONSULTANT Procedure Codes: 94087-61- NON-STRESS TEST NEVAEH MARTINI DO Nov 09, 2024 12:37
--- NOTE | 2024-11-09 12:38 | DVHDS2 ---
Physician Discharge Progress N Final Diagnosis: preeclampsia with severe features, GDMA2, and PTL Operations or Procedures: Operations or Procedures nst reactive reviwed,sono,labs Condition on Discharge: Higher Level of Care Disposition: Acute Care Facility Discharge Instructions: Diet: Regular Activity: Bed rest Medications: mg Follow Up Care: Specialist: to [facility] Discharge Statement: "Patient was advised to return to the ER or call 911 if any headaches, dizziness, shortness of breath, chest pain, abdominal pain, bleeding, fevers, or worsening of medical condition. Patient was counseled about treatment plan, medications, possible side effects, patientverbalized understanding. All questions were answered to the best of my ability. This discharge took greater then 30 minutes in planning, reviewing documentation, counseling the patient, and discussing with other team members." Visit Coding OBGYN Date of Service: Nov 08, 2024 Billing Provider: NEVAEH MARTINI DO WAITER/WAITRESS TAKE OUT Common Visit Codes: 40296-[id number] OBS CARE (HIGH) WAITER/WAITRESS TAKE OUT Procedure Codes: 74733-08- NON-STRESS TEST NEVAEH MARTINI DO Nov 09, 2024 12:38
== END 2024-11-08 22:05 ==
LOC: LDRP 16:53 → UNDODISOB 22:05
PROVIDERS: ADMIT Obstetrics & Gynecology; ATTEND Obstetrics & Gynecology
DX: O24.419 Gestational diabetes mellitus in pregnancy, unspecified control (principal); O60.03 Preterm labor without delivery, third trimester; O14.13 Severe pre-eclampsia, third trimester; Z3A.34 34 weeks gestation of pregnancy; Z88.6 Allergy status to analgesic agent; Z98.890 Other specified postprocedural states; Z79.899 Other long term (current) drug therapy
CPT/HCPCS: 36415; 76817; 76818; 80053; 81001; 81002; 82570; 82948; 82962; 84156; 84550; 85025; 85610; 85730; 94762; 96365; 96366; 96372; A4315; G0378; J0702; J3105; J3475; 59025; 76819; 96360